=== PATIENT | male | born 1945 | race Caucasian/White ===

== ENCOUNTER → 2016-09-21 | Outpatient (CLI) | payer OTHER ==
--- NOTE | 2016-09-21 10:45 | DI ---
XR SHOULDER MIN 2VW,09/21/2016 9:19 AM: Clinical History: Right shoulder pain of unknown chronicity. Previous Exam: None at this facility. Findings: 4 views of the right shoulder are obtained, and demonstrate anatomic alignment without fractures. Deg enerative changes are noted of the right acromioclavicular joint. The adjacent right lung and chest wall are unremarkable. Degenerative changes of the thoracic spine are seen. Impression: Mild degenerative changes of the right acromioclavicular joint otherwise unremarkable.
== END ==
LOC: ORTHO 09:28
PROVIDERS: ATTEND Orthopaedic Surgery
DX: M25.511 Pain in right shoulder (principal); M19.011 Primary osteoarthritis, right shoulder; M75.41 Impingement syndrome of right shoulder
CPT/HCPCS: 20610 ×2; 73030; 99203; G0463; J0702

== ENCOUNTER → 2016-09-29 | Outpatient (CLI) | payer OTHER ==
--- NOTE | 2016-09-29 22:18 | DI ---
MRI RIGHT SHOULDER SCAN, 09/29/2016 1:46 PM: Clinical History: Right shoulder pain. Previous Exam: None at this facility. Technique: Axial, coronal, and sagittal fat saturated PD; axial gradient FE; coronal fat saturatedT2 weighted; sagittal T2 weighted. There is no soft tissue edema or joint effusion. No abnormal bone signal pattern is present with the exception of a small degenerative cyst along the posterior margin of the glenoid fossa at the level o f the equator. 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 A type II acromion is present. A small joint effusion is noted in the AC joint. There is a small amount of fluid in the subacromion bursa. Mild tendinosis is presen t in the supraspinatus tendon and there is a small 3 x 4 mm tear in the transverse and AP dimensions in the conjoined tendon at its attachment to the humeral head. The infraspinatus, teres minor, and rocha bscapularis tendons are normal. Intermediate signal intensity with thickening indicating tendinosis i s present in the tendon of the long head of the biceps muscle in the rotator interval. There is also fluid in the tendon sheath of the extra-articular portion of the tendon of the long head of the bicep s muscle consistent with tenosynovitis. The glenoid labrum is intact but there is thinning with irreg ularity of the articular surfaces of the humeral head and glenoid fossa. The glenoid cartilage shows more irregularity than the humeral cartilage. There is no muscle atrophy. Readin. There is a small 3 x 4 mm tear in the distal aspect of the conjoined tendon on the articular surf demar. Tendinosis is noted in the supraspinatus tendon and the tendon of the long head of the biceps mu scle in the rotator interval. Tenosynovitis is present in the extra-articular portion of the tendon o f the long head of the biceps muscle. The articular surfaces of the glenoid fossa and humeral head ar e thin and there is irregularity primarily involving the glenoid cartilage. Moderate to moderately se dean arthrosis of the AC joint is present. 2. The infraspinatus, teres minor, and subscapularis tendons are normal. The glenoid labrum is intac t. There is a type II acromion.
== END ==
LOC: MRI 13:42
PROVIDERS: ATTEND Orthopaedic Surgery
DX: M25.511 Pain in right shoulder (principal); S46.811A Strain of other muscles, fascia and tendons at shoulder and upper arm level, right arm, initial encounter; M65.811 Other synovitis and tenosynovitis, right shoulder; M19.011 Primary osteoarthritis, right shoulder
CPT/HCPCS: 73221

== ENCOUNTER → 2016-10-16 | Outpatient (CLI) | payer OTHER | LOC: MMPC 10:00 | PROVIDERS: ATTEND Orthopaedic Surgery | DX: M75.41 Impingement syndrome of right shoulder (principal); M19.011 Primary osteoarthritis, right shoulder; M75.21 Bicipital tendinitis, right shoulder | CPT/HCPCS: 20610 ×2; 99213; G0463; J0702 ==

== ENCOUNTER → 2017-01-26 | Outpatient (CLI) | payer OTHER ==
--- NOTE | 2017-01-26 12:14 | DI ---
MRI LUMBAR SPINE W/O CN,01/26/2017 8:56 AM: Clinical History: Low back pain Previous Exam: None at this facility. Findings: Multiplanar MR images are obtained through the lumbar spine without contrast. Bony alignment is anato phu. No fractures are seen. There is some mild edema involving the endplates of L4/5 and L1/2. There is facet hypertrophy noted. Kidneys are unremarkable. The paraspinal musculature is unremarkable. The spinal cord descends normally with a normal conus at the L1 level. There is no evidence of osteolysis nor spondylolisthesis. Individual intervertebral disc spaces: L1/2: No significant stenosis. L2/3: There is disc desiccation, annular fissuring and a broad-based disc bulge with a focal left lat eral recess through foraminal component which extends posteriorly 3-1/2 mm and causes some obstructio n of the left lateral recess mild in degree. There are some facet and ligamentum flavum hypertrophy. There is also mild right lateral recess stenosis and mild central canal stenosis. L3/4: There is disc desiccation and a broad-based disc bulge with some facet and ligamentum flavum hy pertrophy contributing to mild bilateral neural foraminal narrowing. L4/5: There is disc desiccation and a broad-based disc bulge with facet and ligamentum flavum hypertr ophy causing mild central canal stenosis with severe right and moderate left lateral recess stenosis. L5/S1: There is disc desiccation and a broad-based disc bulge combining with facet and ligamentum fla vum hypertrophy to cause severe right and moderate to severe left lateral recess stenosis without sig nificant central canal stenosis. Impression: L2/3: There is disc desiccation, annular fissuring and a broad-based disc bulge with a focal left lat eral recess through foraminal component which extends posteriorly 3-1/2 mm and causes some obstructio n of the left lateral recess mild in degree. There are some facet and ligamentum flavum hypertrophy. There is also mild right lateral recess stenosis and mild central canal stenosis. L3/4: There is disc desiccation and a broad-based disc bulge with some facet and ligamentum flavum hy pertrophy contributing to mild bilateral neural foraminal narrowing. L4/5: There is disc desiccation and a broad-based disc bulge with facet and ligamentum flavum hypertr ophy causing mild central canal stenosis with severe right and moderate left lateral recess stenosis. L5/S1: There is disc desiccation and a broad-based disc bulge combining with facet and ligamentum fla vum hypertrophy to cause severe right and moderate to severe left lateral recess stenosis without sig nificant central canal stenosis.
== END ==
LOC: MRI 08:46
PROVIDERS: ATTEND Physician Assistant
DX: M54.5 Low back pain (principal); M47.816 Spondylosis without myelopathy or radiculopathy, lumbar region; M51.16 Intervertebral disc disorders with radiculopathy, lumbar region
CPT/HCPCS: 72148